=== PATIENT | male | born 2000 | race Caucasian/White ===

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

== ENCOUNTER → 2024-11-06 | Outpatient (CLI) | payer BC | LOC: LAB SHORT 15:18 → LAB 15:18 | DX: J02.9 Acute pharyngitis, unspecified (principal) | CPT/HCPCS: 87081 ==